=== PATIENT | female | born 1980 | race Caucasian/White ===

== ENCOUNTER 2021-10-20 12:31 | Emergency (ER) | payer MEDICAID, SELFPAY ==
[2021-10-20 13:39] VITALS: BP 137/91; PULSE 97; RESP 18; TEMP 36.5; O2SAT 100; BMI 32.5
--- NOTE | 2021-10-20 20:20 | ED_ITS ---
HPI - Extremity Problem General: Chief complaint: Extremity Injury, Upper Stated complaint: Sores on R hand Time Seen by Provider: 10/20/21 20:20 History of Present Illness: 41-year-old female comes in today with pustular lesions to the dorsal right hand. Patient reports getting scratched by her mother's cat last week and since then has developed these infected looking lesions. Patient believes that the impetigo. Patient reports minimal pain to the area. No significant redness or swelling is noted to the dorsal hand or streaking. Patient has been using [id number] antibiotic ointment and iodine for care. Review of Systems Skin/Breast: Reports: changing lesions Physical Exam Const: COMMON NORMALS: alert Neck/C-Spine: COMMON NORMALS: full ROM Resp: COMMON NORMALS: normal respiratory effort Extremity: COMMON NORMALS: full ROM and no pedal edema Neuro: SENSORIUM/ORIENTATION: Yes alert Psych: COMMON NORMALS: cooperative Skin: LESIONS: lesion noted (6 honey crusted lesions noted to the dorsal right hand) Course Vital Signs: Vital signs: Vital Signs Temperature 97.7 F 10/20/21 13:39 Pulse Rate 97 10/20/21 13:39 Respiratory Rate 18 10/20/21 13:39 Blood Pressure 137/91 10/20/21 13:39 Pulse Oximetry 100 10/20/21 13:39 MDM - Extremity (Nontraumatic) Medical Decision Making 41-year-old female comes in today with infected wound from a cat scratch to the dorsal right hand. Patient has 6 honey crusted enlarged lesions to the dorsal right hand. No significant area surrounding redness or streaking. Normal range of motion of the hip is noted. Differential diagnosis includes but not limited to impetigo, contact dermatitis, cellulitis. Patient's wounds do appear to be impetigo. We will treat with Augmentin and mupirocin ointment. Encourage patient to use medications as directed and avoid treatment with other preparations. Patient reported understanding and agreed to plan. Discharge Plan Discharge Patient Disposition: Home Clinical Impression: Impetigo Condition: Stable Prescriptions: New Augmentin 875-125 mg tablet 1 tab PO BID Qty: 14 0RF mupirocin 2 % ointment 1 applic topical BID Qty: 22 0RF Discharge Orders: Discharge ED (Routine); Ordered 10/20/21 Ordered By: Lev Reid Referrals: Justin Howell, MITERING MACHINE OPERATOR-C [Primary Care Provider] - Discharge Diet: Usual diet Discharge Activity: Increase activity as tolerated Patient Instructions: Wound Care (General) Activity Restrictions/Additional Instructions: Wash wound with mild soap and water. Dry thoroughly and cover with antibiotic ointment as directed. Take medications as directed. Drink plenty of water with medication. Follow-up with primary care for further instruction. Return to ER for new concerns. Coding Level of Care Code ED Body Component Engineer for Rob Bui
== END 2021-10-20 20:29 | disposition home or self-care (01) ==
PROVIDERS: Emergency Provider Nurse Practitioner Family; PCP Nurse Practitioner
DX: L01.00 Impetigo, unspecified (principal)
CPT/HCPCS: 99281